=== PATIENT | female | born 1960 | race Caucasian/White ===

== ENCOUNTER 2020-07-19 17:22 | Observation (INO) | payer BC ==
--- NOTE | 2020-07-19 18:46 | ED ---
General Adult HPI - General Chief complaint: Eye Problems Stated complaint: rt sided vision loss last PM Time Seen by Provider: 07/19/20 18:27 Source: patient Mode of arrival: ambulatory Limitations: no limitations - History of Present Illness Initial comments: Dictation was produced using Ripp[employer] dictation software. please excuse any grammatical, word or spelling errors. This patient was cared for during a federal and state declared state of em ergency secondary to Covid 19 Chief Complaint: 60-year-old fell no significant comorbidities presents to the emergency department for transient monocular vision loss of the right eye History of Present Illness: Patient is 60-year-old female she had an episode of transient monocular vision loss in the right eye she was seen at the chute tapper office or she was evaluated. Fire Protection Designer sent her here to be evaluated for transient ischemic attack. Patient states that earlier today she had 30 seconds of blackening in her right eye that lasted for 30 seconds. Patient states that her creatinine 4 AM. History of strokes. She has no history of tobacco use. She denies any comorbidities and history of diabetes, high cholesterol or hypertension. She has no complaints at this time. The ROS documented in this emergency department record has been reviewed and confirmed by me. Those systems with pertinent positive or negative responses have been documented in the HPI. All other systems are other negative and/or noncontributory. PHYSICAL EXAM: General Impression: Alert and oriented x3, not in acute distress HEENT: Normocephalic atraumatic, extra-ocular movements intact, pupils equal and reactive to light bilaterally, mucous membranes moist. Cardiovascular: Heart regular rate and rhythm Chest: Able to complete full sentences, no retractions, no tachypnea Abdomen: abdomen soft, non-tender, non-distended, no organomegaly Musculoskeletal: Pulses present and equal in all extremities, no peripheral edema Motor: no focal deficits noted Neurological: CN II-XII grossly intact, no focal motor or sensory deficits noted, NIH of 0 Skin: Intact with no visualized rashes Psych: Normal affect and mood ED course:60-year-old female sent to the emergency department by chute tapper for concerns of amaurosis fugax. Vital Signs upon arrival are within acceptable limits. EKG interpretation: Ventricular rate 70, normal sinus rhythm,. 136, QRS 70, QTc 464. No MI prolongation, no QTC prolongation, no ST or T-wave changes noted. Overall, this EKG is unremarkable CT brain shows no acute processes. CT angios the head and neck shows no abnormalities. Laboratory evaluation obtained. CBC, coag panel, metabolic panel is unremarkable. Patient given aspirin. Clinical presentation consistent with amaurosis fugax, transient ischemic attack. Disposition options were discussed. Patient would prefer to be admitted to the hospital for neurology consultation. She'll be admitted to Dr. Robles. - Related Data Home Medications Medication Instructions Recorded Confirmed Aspirin EC [Ecotrin Low Dose] 81 mg PO DAILY 07/19/20 07/19/20 Biotin 10,000 mcg PO Q48H 07/19/20 07/19/20 Propranolol HCl [Propranolol HCl 160 mg PO DAILY 07/19/20 07/19/20 ER] Allergies Allergy/AdvReac Type Severity Reaction Status Date / Time No Known Allergies Allergy Verified 07/19/20 19:40 Review of Systems ROS Statement: Those systems with pertinent positive or pertinent negative responses have been documented in the HPI. ROS Other: All systems not noted in ROS Statement are negative. Past Medical History Past Medical History: No Reported History History of Any Multi-Drug Resistant Organisms: None Reported Past Surgical History: No Surgical Hx Reported Past Psychological History: No Psychological Hx Reported Smoking Status: Never smoker Past Alcohol Use History: Occasional Past Drug Use History: None Reported General Exam Limitations: no limitations Course Vital Signs 07/19/20 17:40 Temperature 98 F Pulse Rate 73 Respiratory 16 Rate Blood Pressure 150/89 O2 Sat by Pulse 97 Oximetry Medical Decision Making - Lab Data Result diagrams: 07/19/20 19:06 07/19/20 20:27 Lab Results 07/19/20 07/19/20 07/19/20 Range/Units 19:06 20:27 20:27 WBC 8.5 (3.8-10.6) k/uL RBC 4.39 (3.80-5.40) m/uL Hgb 13.4 (11.4-16.0) gm/dL Hct 40.5 (34.0-46.0) % MCV 92.3 (80.0-100.0) fL MCH 30.6 (25.0-35.0) pg MCHC 33.1 (31.0-37.0) g/dL RDW 14.2 (11.5-15.5) % Plt Count 340 (150-450) k/uL MPV 8.6 Neutrophils % 51 % Lymphocytes % 34 % Monocytes % 6 % Eosinophils % 7 % Basophils % 1 % Neutrophils # 4.4 (1.3-7.7) k/uL Lymphocytes # 2.9 (1.0-4.8) k/uL Monocytes # 0.5 (0-1.0) k/uL Eosinophils # 0.6 (0-0.7) k/uL Basophils # 0.1 (0-0.2) k/uL Hypochromasia Marked Poikilocytosis Marked PT 9.8 (9.0-12.0) sec INR 0.9 (<1.2) APTT 23.4 (22.0-30.0) sec Sodium 138 (137-145) mmol/L Potassium 4.2 (3.5-5.1) mmol/L Chloride 102 (98-107) mmol/L Carbon Dioxide 25 (22-30) mmol/L Anion Gap 11 mmol/L BUN 17 (7-17) mg/dL Creatinine 0.67 (0.52-1.04) mg/dL Est GFR (CKD-EPI)AfAm >90 (>60 ml/min/1.73 sqM) Est GFR (CKD-EPI)NonAf >90 (>60 ml/min/1.73 sqM) Glucose 81 (74-99) mg/dL Calcium 9.6 (8.4-10.2) mg/dL Disposition Clinical Impression: Amaurosis fugax Disposition: ADMITTED IP TO THIS [facility] Condition: Fair Referrals: Nish Olvera MD [Primary Care Provider] - 1-2 days
--- NOTE | 2020-07-19 19:29 | CT ---
EXAMINATION TYPE: CT brain wo con DATE OF EXAM: 07/19/2020 COMPARISON: None HISTORY: TIA, vision loss RT eye last night CT DLP: 1132.8 mGycm Automated exposure control for dose reduction was used. Ventricles have normal size. There is no mass effect nor midline shift. There is no sign of intracran ial hemorrhage. Calvarium is intact. There is some mucosal thickening in the maxillary and ethmoid si nuses. IMPRESSION: No acute intracranial abnormality. Sinusitis.
[2020-07-19 19:48] LABS: Basophils # (A) 0.1 k/uL (0-0.2); Basophils % (A) 1 %; Eosinophils # (A) 0.6 k/uL (0-0.7); Eosinophils % (A) 7 %; HCT 40.5 % (34.0-46.0); HGB 13.4 gm/dL (11.4-16.0); Hypochromasia Marked; Lymphocytes # (A) 2.9 k/uL (1.0-4.8); Lymphocytes % (A) 34 %; MCH 30.6 pg (25.0-35.0); MCHC 33.1 g/dL (31.0-37.0); MCV 92.3 fL (80.0-100.0); Mean Platelet Volume 8.6; Monocytes # (A) 0.5 k/uL (0-1.0); Monocytes % (A) 6 %; Neutrophils # (A) 4.4 k/uL (1.3-7.7); Neutrophils % (A) 51 %; Platelet Count 340 k/uL (150-450); Poikilocytosis Marked; RBC 4.39 m/uL (3.80-5.40); RDW 14.2 % (11.5-15.5); WBC 8.5 k/uL (3.8-10.6)
--- NOTE | 2020-07-19 20:03 | CT ---
EXAMINATION TYPE: CT angio head neck DATE OF EXAM: 07/19/2020 COMPARISON: None HISTORY: TIA, vision loss RT eye last night. CT DLP: 980.1 mGycm Automated exposure control for dose reduction was used. CONTRAST: Performed with IV Contrast, patient injected with 65 mL of Isovue 370. Images obtained from the aortic arch to the vertex of the brain with IV contrast. There are 3-D post processed images. There is normal branching pattern of the great vessels on the aortic arch. There is bilateral arteria l flow in the subclavian arteries. There is arterial flow in the common internal and external carotid arteries bilaterally. There is fairly wide patency of the carotid artery bifurcations. There is bila teral arterial flow in the vertebral arteries. I see no evidence of carotid or vertebral artery aneur ysm or dissection. There is no mass effect. There is arterial flow in the anterior middle and posterior cerebral arteries. There is no mass effec t. There is no intracranial aneurysm or neovascularity. There is no evidence of hemodynamic stenosis. There is normal enhancement of the venous sinuses. There is some mucosal thickening in the frontal a nd ethmoid and maxillary sinuses with fluid levels. IMPRESSION: Negative CT angiogram of the neck. Negative CT angiogram of the brain. Sinusitis.
[2020-07-19 20:44] LABS: INR 0.9 (<1.2); Partial Thromboplastin Time 23.4 sec (22.0-30.0); Prothrombin Time 9.8 sec (9.0-12.0)
[2020-07-19 20:45] LABS: African American GFR (CKD) >90 (>60 ml/min/1.73 sqM); Anion Gap 11 mmol/L; Blood Urea Nitrogen 17 mg/dL (7-17); Calcium 9.6 mg/dL (8.4-10.2); Carbon Dioxide 25 mmol/L (22-30); Chloride 102 mmol/L (98-107); Glucose 81 mg/dL (74-99); Non-African American GFR(CKD) >90 (>60 ml/min/1.73 sqM); Potassium 4.2 mmol/L (3.5-5.1); Sodium 138 mmol/L (137-145)
[2020-07-19] MEDS ORDERED: ASPIRIN 81 MG PO STA (22:17)
[2020-07-19] MEDS ORDERED: SODIUM CHLORIDE 0.9% 1,000 ML IV SCH (22:30)
[2020-07-20] MEDS: ASPIRIN 325 MG TAB PO SCH ×2 (00:46→07:33)
[2020-07-20 03:09] VITALS: RESP 16; TEMP 97.8
[2020-07-20] MEDS ORDERED: ATORVASTATIN 80 MG TAB PO STA (08:05)
[2020-07-20] MEDS ORDERED: CLOPIDOGREL 75 MG TAB PO STA (08:06)
[2020-07-20] MEDS ORDERED: PROPARACAINE 0.5% OPHTH DROPS 15 ML BTL BOTH EYES STA (08:39)
[2020-07-20] MEDS ORDERED: TROPICAMIDE 1% OPHTH DROPS 2 ML BTL BOTH EYES STA (08:42)
[2020-07-20] MEDS ORDERED: PHENYLEPHRINE 2.5% OPHTH DRP 2ML BOTH EYES STA (08:42)
[2020-07-20 08:59] VITALS: BP 128/69; PULSE 62
[2020-07-20] MEDS ORDERED: ASPIRIN 81 MG PO SCH (09:00)
[2020-07-20] MEDS ORDERED: HEPARIN SODIUM,PORCINE/PF 5,000 UNIT/0.5 ML SYRINGE SQ SCH (09:00)
[2020-07-20] MEDS ORDERED: FAMOTIDINE 20 MG/2 ML VIAL IV SCH (09:00)
--- NOTE | 2020-07-20 09:38 | P.CNNES ---
History of Present Illness Consult date: 07/20/20 Requesting physician: Kanu Solis Reason for Consult: amaurosis fugax History of Present Illness: This is a 60 -year-old woman essential tremor (>40 years ago), sinus headache presented emergency department on 07/19/2020 for transient monocular vision loss of the right eye and was sent by her natural gas basis trader. She presents our facility on the 07/19/2020 at around 1722. She said that she woke up at 4:00 in the mo rning and the what these the restroom and she was doing well at and all of a sudden her right eye she could not see and was pitch black lasting for about 30 seconds. She had a minor headache over the right frontal but not nothing significant denied any jaw claudication denies any difficulty getting her words out, denied of any numbness denies of any swallowing difficulties denies any photophobia photophobia. The episode resolved and the she has not had any further episodes like this. She denies of any previous episodes or strokes in the past. She only has as sinus headaches but nothing significant and she does not feel her headache is any different this time around compared to previously. As a result of her visual loss the patient was examined by an natural gas basis trader over at [facility] by Dr. Derick Preciado and was notified likely she had TIA and was told to come to the hospital. Patient denies of tobacco use or illicit drug use. Patient home medication includes aspirin 81, biotin, propranolol. Upon presented to the hospital she had no neurological deficit. She stated her fathe r had myocardial infarction at a young gauge less than 40 years old. Of note the patient stated that regarding her essential she followed up with a neurologist as an outpatient and that was remotely and there is a family history of essential tremor. Some other workup in the hospital consisted of: Initial vital signs: Blood pressure 150/89, heart rate of 73, respiratory of 16, temperature of 98 Fahrenheit oral and pulse ox of 97% at room air. Upon presented to the hospital patient had no neurological deficits and per the ED note she had NIH of 0. CT of the head is reported as no acute intracranial abnormality. Sinusitis. I personally could not review the CT of the head or CT angiography of the head and neck because of an issue with the system. CT angiography of the head and neck is reported as negative. Sinusitis. Lipid panel: Triglyceride 95, cholesterol 274, LDLs 176 and HDL is 79. TSH of 2.89 which is considered normal. Otherwise the basic CBC and chemistry panel are unremarkable. Review of Systems Review of system: The 12 point system was reviewed and apparent positive and negative per HPI. Past Medical History Past Medical History: No Reported History History of Any Multi-Drug Resistant Organisms: None Reported Past Surgical History: No Surgical Hx Reported Past Anesthesia/Blood Transfusion Reactions: No Reported Reaction Past Psychological History: No Psychological Hx Reported Smoking Status: Never smoker Past Alcohol Use History: Occasional Past Drug Use History: None Reported Medications and Allergies Home Medications Medication Instructions Recorded Confirmed Type Aspirin EC [Ecotrin Low Dose] 81 mg PO DAILY 07/19/20 07/19/20 History Biotin 10,000 mcg PO Q48H 07/19/20 07/19/20 History Propranolol HCl [Propranolol HCl 160 mg PO DAILY 07/19/20 07/19/20 History ER] Atorvastatin [Lipitor] 40 mg PO HS #30 tab 07/20/20 Rx Clopidogrel [Plavix] 75 mg PO DAILY #30 tab 07/20/20 Rx predniSONE [Deltasone] 60 mg PO DAILY #0 tab 07/20/20 Rx Allergies Allergy/AdvReac Type Severity Reaction Status Date / Time No Known Allergies Allergy Verified 07/19/20 19:40 Physical Examination - Vital Signs Vital Signs: Vital Signs Temp Pulse Pulse Resp BP BP Pulse Ox 07/20/20 01:15 97.8 F 76 16 110/72 98 07/19/20 23:08 72 18 142/80 99 07/19/20 17:40 98 F 73 16 150/89 97 Intake and Output 07/19/20 07/20/20 07/20/20 22:59 06:59 14:59 Other: Voiding Method Toilet # Voids 2 Weight 81.647 kg GENERAL: The patient is lying in bed and is not in acute distress. CHEST: The heart rate is regular rate rhythm. No murmurs to auscultation. No carotid bruit bilaterally. LUNG: Clear to auscultation bilaterally no wheezing noted throughout. Not labored breathing. ABDOMEN/GI: Bowel sounds present in all 4 quadrants. No tenderness to palpation throughout. NEUROLOGICAL: Higher mental function: The patient is awake, alert, oriented to self, place and time. Patient is following commands. No aphasia and no neglect. Cranial nerves: The pupils are round, equal and reactive to light and accommodation. Visual acuity is 20/30 OD and 20/40 OS with correction. Visual strauss are full to confrontation throughout. Extraocular movement is intact no nystagmus is noted. Facial sensation is normal to touch throughout. The facial strength is normal throughout. Hearing is normal bilaterally to hand rub. Tongue is midline and moved [id number] without any difficulty. No dysarthria is noted. Shoulder shrug is normal bilaterally. Motor: Gait is deferred. The strength is 5 over 5 throughout. Normal tone and bulk. Cerebellum: Normal finger to nose bilaterally. She had tremor toward end of action on finger to nose or trying to hold object. Sensation: Sensation is normal to touch throughout. Reflexes (right/left): 2+ throughout. Plantars are downgoing bilaterally. Results Pappas virus PCR was not detected - Laboratory Findings CBC and BMP: 07/19/20 19:06 07/19/20 20:27 Abnormal Lab Findings: Abnormal Labs 07/19/20 19:06 Cholesterol 274 H LDL Cholesterol, Calc 176 H HDL Cholesterol 79 H Assessment and Plan Assessment: Amaurosis fugax of the right eye (Transient ischemic attack) Newly diagnosed Dyslipidemia Essential tremor (>40 years with family hx of essential tremor) Family history of NH <40 years old (father) Plan: * CT of the head is reported as no acute intracranial abnormality. Sinusitis. I personally could not review the CT of the head or CT angiography of the head and neck because of an issue with the system. * CT angiography of the head and neck is reported as negative. Sinusitis. * Lipid panel: Triglyceride 95, cholesterol 274, LDLs 176 and HDL is 79. * TSH of 2.89 which is considered normal. * In the ED the patient was given aspirin 324 mg once and was started on 325 daily. I decreased the aspirin from 325 mg to 81mg and I added Plavix 75 mg. The patient to be on dual antiplatelets for 21 days and after 21 days to stop aspirin and continue Plavix 75 daily. I started the patient on Lipitor 40 mg daily at bedtime and I will load the patient with Lipitor 80 mg once. LDL goal and strokes is less than 70. * I ordered 2-D echo with bubble study, carotid duplex and hemoglobin A1c. * Ordered ESR and CRP level (highly unlikely temporal arteritis). * Every 4 hours neuro checks. * Placed on continuous cardiac monitoring * PT OT and APPLICATIONS ADMINISTRATOR are consulted by the ED team. * Ordered an event monitor and patient needs to follow-up with student officer regarding reviewing it. Recommend loop recorder. * Ophthalmology team is consulted. * We'll defer the rest of the medical management to the primary team. Upon discharge the patient needs to follow-up with a neurologist as outpatient within 1-2 weeks. Thank you for the consultation. John Monroy M.D. Neuro-hospitalist Time with Patient: Greater than 30
--- NOTE | 2020-07-20 10:32 | US ---
EXAMINATION TYPE: US carotid duplex BILAT DATE OF EXAM: 07/20/2020 COMPARISON: CT angio CLINICAL HISTORY: tia sx, vision loss. . transient vision loss EXAM MEASUREMENTS: RIGHT: Peak Systolic Velocity (PSV) cm/sec ----- Right CCA: 100 ----- Right ICA: 92.3 ----- Right ECA: 85.0 ICA/CCA ratio: 0.9 RIGHT: End Diastole cm/sec ----- Right CCA: 30.0 ----- Right ICA: 30.0 ----- Right ECA: 14.7 LEFT: Peak Systolic Velocity (PSV) cm/sec ----- Left CCA: 103 ----- Left ICA: 97.4 ----- Left ECA: 114 ICA/CCA ratio: 0.9 LEFT: End Diastole cm/sec ----- Left CCA: 31.8 ----- Left ICA: 39.6 ----- Left ECA: 26.0 VERTEBRALS (direction of flow): Right Vertebral: Antegrade Left Vertebral: Antegrade Rhythm: Normal No significant stenosis seen IMPRESSION: 1. No significant hemodynamic stenosis. Criteria for Assigning % of Stenosis / Diameter reduction (Estimation based on the indirect measurements of the internal carotid artery velocities (ICA PSV). 1. Normal (no stenosis)=ICA PSV < 125 cm/s: ratio < 2.0: ICA EDV<40 cm/s. 2. Less than 50% stenosis=ICA PSV < 125 cm/s: ratio < 2.0: ICA EDV<40 cm/s. 3. 50 to 69% stenosis=ICA PSV of 125 to 230 cm/s: ration 2.0 ? 4.0: ICA EDV 40-100 cm/s. 4. Greater than 70% stenosis to near occlusion= ICA PSV > 230 cm/s: ratio > 4.0: ICA EDV > 100 cm/s. 5. Near occlusion= ICA PSV velocities may be low or undetectable: variable ratio and ICA EDV. 6. Total occlusion=unable to detect flow.
--- NOTE | 2020-07-20 12:08 | P.CON ---
Consult Note - . Consult date: 07/20/20 Assessment/Plan:: This is a 60 y/o female who presents with a temporary loss of vision (30") in her right eye @ 0400 hrs the morning of admission. She denies any associated neurological deficits at the time of the symptoms. There was no headache, problems with thinking, weakness etc. She however, discussed her symptoms with Dr. Singh, OD near home who recommended she be seen with ophthalmology later that afternoon, Dr. Gil. A complete eye exam did not reveal any overt findings that would lead to amaurosis. Therefore, she was sen to the ER for assessment and possible admission. Her previous history is totally unremarkable for opthalmologic problems, other than she's been wearing glasses since about 37 y/o, and now with bifocals. Her last eye exam was about 2 years ago, and know she's due to have a complete eye exam. Her previous medical history is for essential tremor and is currently on propranolol. She denies any previous history of migraine type problems. She denies any PMR or GCA symptoms, e.g., no jaw claudication, no vascular tenderness of the temporal artery, night sweats seem to be associated with normal change of life, no weight loss noted. General medical health has been good as well. Exam: Dilated @ 0850 2% monty & 1% tropicamide (last about 6 hours) Ext: normal, full function of brow, lids, EOM. Reasonable temporal artery pulses bilaterally, no tenderness through the distribution of vessels or scalp CF: normal, in all strauss Pupils: no APD Va w/ correction 20/30, OU IOP: 14 mm Hg OD; 15 mm Hg OS Conjuntiva: quiet OU Cornea: clear OU AC: clear OU Iris: brown, without pathology Lens: clear Vitreous: clear Optic nerve: S/F P C:D: 0.1 OD, 0.2 OS Mac: quiet Vascular: moderate venous pulsations, OU. normal caliber, no noted Hollenhorsts Peripheral: intact 360 OU, no indication of vascular occlusion, or NFL infa ction Labs: WSR - 34, and C-RP 5.9 A: 1) amaurosis fugax, right side last 30" without overt findings of etiology. Elevated sedimentation rate and C-RP is suggestive without overt physical findings of possible GCA. P: recommend after the balance of the Doppler or other implicating studies completed, consdier using oral steroids, and obtain a temporal artery biopsy, possible BOTH sides for improved results, and taper based on underlying condition. Recommend she return to her personal administrative accountant upon discharge. Thank you for this consultation.
--- NOTE | 2020-07-20 13:23 | ECHOF ---
Referral Reason:TIA sx, vision issues. MEASUREMENTS -------- HEIGHT: 170.2 cm WEIGHT: 81.7 kg BP: RVIDd: 2.3 cm (< 3.3) IVSd: 1.1 cm (0.6 - 1.1) LVIDd: 3.9 cm (3.9 - 5.3) LVPWd: 1.1 cm (0.6 - 1.1) IVSs: 1.3 cm LVIDs: 3.3 cm LVPWs: 1.4 cm LA Diam: 2.9 cm (2.7 - 3.8) Ao Diam: 2.7 cm (2.0 - 3.7) AV Cusp: 1.9 cm (1.5 - 2.6) MV EXCURSION: 16.659 mm (> 18.000) MV EF SLOPE: 123 mm/s (70 - 150) EPSS: 0.3 cm MV E Jeremy: 0.62 m/s MV DecT: 179 ms MV A Jeremy: 0.72 m/s MV E/A Ratio: 0.86 RAP: 5.00 mmHg RVSP: 19.00 mmHg FINDINGS -------- Sinus rhythm. This was a technically good study. LV size, wall thickness and systolic function are normal, with an EF greater than 55%. The left johnathan tricular size is normal. The right ventricle is normal in size. The left atrial size is normal. The right atrial size is normal. Agitated Saline study is negative, no crossing at atrial level or right to left shunt noted. The aortic valve is trileaflet, and appears structurally normal. No aortic stenosis or regurgitation. Mild mitral regurgitation is present. Mild tricuspid regurgitation present. Right ventricular systolic pressure is normal at < 35 mmHg. There is no pulmonic regurgitation present. There is no pericardial effusion. CONCLUSIONS -------- 1. LV size, wall thickness and systolic function are normal, with an EF greater than 55%. 2. The left ventricular size is normal. 3. The right ventricle is normal in size. 4. The left atrial size is normal. 5. The right atrial size is normal. 6. Agitated Saline study is negative, no crossing at atrial level or right to left shunt noted. 7. The aortic valve is trileaflet, and appears structurally normal. No aortic stenosis or regurgitati on. 8. Mild mitral regurgitation is present. 9. Mild tricuspid regurgitation present. 10. There is no pulmonic regurgitation present. 11. There is no pericardial effusion. TRAVEL SPECIALIST: Ashley Tee RDCS
[2020-07-20 14:46] LABS: Hemoglobin A1C 5.5 % (4.0-6.0)
--- NOTE | 2020-07-20 16:53 | HP ---
HISTORY AND PHYSICAL COMBINED HISTORY AND PHYSICAL/DISCHARGE SUMMARY: DATE OF SERVICE: 07/20/2020. CHIEF COMPLAINTS: Transient right-sided vision loss. HISTORY OF PRESENT ILLNESS: This 60-year-old woman with a past medical history of multiple medical problems including essential tremors, otherwise no other medical issues, being followed by Dr. Nicolle Ramos in the outpatient setting as well as Dr. Olvera in the outpatient setting, was admitted with complaints of transient loss of vision on the right eye which lasted only very few length of time. The patient improved significantly. Patient was taken to [facility] and was admitted for further evaluation and treatment. Evaluation showed evidence of hyperlipidemia. Otherwise basic evaluation including CT angiogram and brain CT did not show acute abnormality. Carotid Doppler showed no evidence of any active disease or any obstruction. The 2D echo was read by Cardiology showed ejection fraction about 55% and agitated study was also negative. Mild mitral and tricuspid regurgitation was noted in the 2D echo. Ophthalmology Dr. Braden has seen the patient. The patient has elevated ESR at 34, CRP 5.9, possible giant cell arteritis is considered. Dr. Braden recommended congested initiate steroids of prednisone 60 mg for 10 days and then taper 30 mg to be followed in the outpatient setting by Neurology, ophthalmology and as well with possible for temporal artery biopsy. There is no history of fever, rigors or chills. PAST MEDICAL HISTORY: Essential tremors. MEDICATIONS PRIOR TO ADMISSION: Noted. Propranolol, Biotin. ALLERGIES: None. FAMILY HISTORY: No history of heart disease or strokes in the family. SOCIAL HISTORY: No history of smoking. Occasional alcohol. REVIEW OF SYSTEMS: ENT: As mentioned earlier. CARDIOVASCULAR: No angina or palpitations. RESPIRATION: No cough. GI: No nausea or vomiting. : No dysuria. NERVOUS SYSTEM: As mentioned earlier. ALLERGY/IMMUNOLOGY: No asthma or hayfever. MUSCULOSKELETAL: As mentioned earlier. HEMATOLOGY/ONCOLOGY: No history of anemia. ENDOCRINE: No history of diabetes or hypothyroidism. CONSTITUTIONAL: As mentioned earlier. DERMATOLOGY: Negative. RHEUMATOLOGY: Negative. PSYCHIATRY: As mentioned. PHYSICAL EXAMINATION: Alert and oriented times three. Pulse 62, blood pressure 120/69, respirations 16, temperature 97.8, pulse ox 97% on room air. HEENT: Conjunctivae normal. NECK: No JVD. CARDIOVASCULAR: S1, S2 muffled. RESPIRATIONS: Breath sounds diminished in the bases. No rhonchi. No crackles. ABDOMEN: Soft, nontender. No mass palpable. LEGS: No edema. No swelling. NERVOUS SYSTEM: Higher functions as mentioned earlier. Moves all limbs. No focal motor or sensory deficits. LYMPHATICS: No lymph nodes palpable in the neck, axillae or groin. SKIN: No ulcer, no rash and no bleeding. JOINTS: No active deforming arthropathy. Some venous pulsations are noted. Fundus exam done by Ophthalmology per Dr. Braden. LABS: Sedimentation rate is 34 and C-reactive protein is 5.9, Covid 19 is negative. Cholesterol 275, LDL is 117, HDL 79. ASSESSMENT: 1. Right-sided amaurosis fugax, possible acute transient ischemic attack. 2. Rule out giant cell arteritis. 3. Hyperlipidemia. 4. History of benign essential tremors. RECOMMENDATIONS AND DISCUSSION: This 60-year-old woman who presented with multiple complex medical issues, at this time, I recommend to continue the current medications, symptomatic treatment. Otherwise, Dr. Braden has recommended outpatient followup and as well as neurology. Cardiology also seen the patient for monitoring. The patient is stable but overall prognosis remains guarded. Outpatient temporal artery biopsy also recommended. DISCHARGE ADVICE AND MEDICATIONS: 1. Biotin daily. 2. Ecotrin 81 mg daily. 3. Propranolol 160 mg p.o. daily. 4. Prednisone 60 mg daily for 10 days and then 30 daily for 10 days. Per Ophthalmology. 5. Lipitor 40 mg q.h.s. 6. Plavix 75 mg p.o. daily. 7. Follow up with Dr. Brown in one week. 8. Follow with Dr. Clayton in 1 week. 9. Follow up with ophthalmology in 1 week. 10.Follow up with Dr. Olvera in 2-3 days. Once again the patient is being discharged in stable condition. Guarded prognosis. MMODL / IJN: [id number] / MTDD
[2020-07-21] MEDS ORDERED: CLOPIDOGREL 75 MG TAB PO SCH (09:00)
[2020-07-21] MEDS ORDERED: ATORVASTATIN 40 MG TAB PO SCH (21:00)
== END 2020-07-20 13:35 | disposition home or self-care (01) ==
LOC: EC 17:22 → 6NMEDSUR 22:17
PROVIDERS: ADMIT Hospitalist; ATTEND Hospitalist
DX: G45.3 Amaurosis fugax (principal); E78.5 Hyperlipidemia, unspecified; G25.0 Essential tremor; I08.1 Rheumatic disorders of both mitral and tricuspid valves; J32.9 Chronic sinusitis, unspecified; Z20.822 Contact with and (suspected) exposure to COVID-19; Z79.82 Long term (current) use of aspirin; Z79.899 Other long term (current) drug therapy; Z82.49 Family history of ischemic heart disease and other diseases of the circulatory system; Z82.0 Family history of epilepsy and other diseases of the nervous system
CPT/HCPCS: 96374; 99285; 36415; 93005; 93306; 93270; 80061; 80048; 85652; 84443; 85025; 85610; 85730; 86140; 83036; 87635; 93880; 70496; 70450; 70498; G0378 ×2; Q9967